=== PATIENT | male | born 1995 | race Caucasian/White ===

== ENCOUNTER 2016-09-13 08:50 | Emergency (ER) | payer OTHER ==
--- NOTE | 2016-09-13 09:22 | ED Physician Documentation ---
History of Present Illness - Stated complaint Stated Complaint: LT KNEE PX - Chief complaint Chief Complaint: Ext Problem - Additonal information Additional information: hx from pt 20 male playing soccer twisted on pknated foot felt pop and crack in his L knee immed swelling pain with ROM can walk Review of Systems Musculoskeletal: reports: Joint pain, Joint swelling, Pain with weight bearing PD PAST MEDICAL HISTORY - Past Medical History Neuro: Head injury - Past Surgical History Past Surgical History: No - Allergies Allergies/Adverse Reactions: Allergies Allergy/AdvReac Type Severity Reaction Status Date / Time No Known Drug Allergies Allergy Verified 09/13/16 08:59 - Social History Does the pt smoke?: Yes Smoking Status: Current some day smoker Does the pt drink ETOH?: No Does the pt have substance abuse?: No - Immunizations Immunizations are current?: Yes PD ED PE NORMAL - Vitals Vital signs reviewed: Yes - Extremities Extremities: Other (L knee: + effusion, no appeciable ACL laxity (pt guarding 2/ 2 pain though), no MSL LCL laxity, some discomfor and resistance but no pop with meniscla testing, full ext, somehwhat limited flexion, MSV intact) Results - Vitals Vitals: Vital Signs - 24 hr 09/13/16 08:58 Temperature 36.7 C Heart Rate 97 Respiratory 18 Rate Blood Pressure 138/92 H O2 Saturation 97 Oxygen O2 Source Room air - Rads (name of study) knee Radiology: See rad report (moderate effusion in the suprapatellar bursa, no bony abn) PD MEDICAL DECISION MAKING - ED course ED course: exam most c/w meniscal injury Departure - Departure Disposition: 01 Home, Self Care Clinical Impression: Knee internal derangement Qualifiers: Laterality: left Qualified Code(s): M23.92 - Unspecified internal derangement of left knee Condition: Good Instructions: ED Meniscal Injury Knee Poss Follow-Up: [facility] [Provider Group] Comments: The xray is fine. Based on your exam I suspect a meniscal injury Please follow up with orthopedics - you need to call to schedule ELO elevate and ice to decrease the swelling Motrin and tylenol as needed for the pain Please follow up with your PMD about your blood pressure - it was high today Forms: Activity restrictions
--- NOTE | 2016-09-13 10:41 | XRAY Preliminary Report ---
Exam: XR Knee 4 View LT IMPRESSION: Moderate effusion in the suprapatellar bursa. No additional bone or joint abnormality not ed. [facility] SITE ID: [id number]
--- NOTE | 2016-09-13 10:43 | XRAY Report ---
EXAM: LEFT KNEE RADIOGRAPHY, 4 VIEWS EXAM DATE: 09/13/2016 10:00 AM. CLINICAL HISTORY: 21-year-old male twisted left knee while playing soccer last night. COMPARISON: None. TECHNIQUE: Frontal, crosstable lateral and both oblique views. FINDINGS: Bones: Normal. No fractures or bone lesions. Joints: Joint space is well-maintained. No subluxation. Moderate effusion in the suprapatellar bursa. Soft Tissues: Normal. No soft tissue swelling. IMPRESSION: Moderate effusion in the suprapatellar bursa. No additional bone or joint abnormality not ed. [facility] Referring Provider Line: [phone] SITE ID: [id number]
[2016-09-13 11:02] VITALS: BP 114/77
== END 2016-09-13 11:28 | disposition home or self-care (01) ==
LOC: ED 08:50
DX: M23.8X2 Other internal derangements of left knee (principal); X50.9XXA Other and unspecified overexertion or strenuous movements or postures, initial encounter; Y93.66 Activity, soccer; Y92.322 Soccer field as the place of occurrence of the external cause
CPT/HCPCS: 99282; 99283

== ENCOUNTER 2016-10-09 10:46 | Outpatient (CLI) | payer OTHER ==
--- NOTE | 2016-10-09 15:37 | MRI Report ---
EXAM: LEFT KNEE MRI WITHOUT CONTRAST EXAM DATE: 10/09/2016 11:44 AM. CLINICAL HISTORY: Left knee soccer injury late August. Twisting injury. COMPARISON: Radiographs 09/13/2016. TECHNIQUE: Multiplanar, multisequence T1-weighted and fluid-sensitive sequences of the knee without c ontrast. Other: None. FINDINGS: There is a small joint effusion. Cruciate ligaments: The posterior cruciate ligament appears intact. The anterior cruciate ligament ap pears completely torn. Medial meniscus: Intact. No tear is identified. Lateral meniscus: Complex partial-thickness oblique radial tear at the inner half of the posterior ho rn. Small flap fragment at the root of the posterior horn. Collateral ligaments: Trace fluid within the MCL bursa. Medial and fibular collateral ligaments other hobbs appear intact. Bones and articular surfaces: Prominent patchy foci of marrow edema throughout the posterior aspect o f the medial and lateral tibial plateau as well as the periphery of the mid medial femoral condyle. M ore pronounced marrow edema at the mid lateral femoral condyle. Some linear hypointense T1 signal bandar p to the subchondral bone plate at the lateral tibial plateau consistent with small focus of nondispl aced incomplete fracture. Overlying articular cartilage appears intact. Prominent marrow edema and so me linear signal abnormalities within the fibular head consistent with nondisplaced fracture. Extensor mechanism: The patellar tendon and quadriceps insertion appear intact. IMPRESSION: 1. Tear of the anterior cruciate ligament with corresponding bone contusions. 2. Complex partial-thickness oblique radial tear at the inner half of the posterior horn lateral meni scus with a flap fragment. 3. Nondisplaced fracture of the fibular head. 4. Incomplete nondisplaced subchondral fracture at the weightbearing lateral femoral condyle. [facility] MUSCULOSKELETAL RADIOLOGY SECTION Referring Provider Line: [phone] SITE ID: [id number]
== END 2016-10-09 10:47 | disposition home or self-care (01) ==
LOC: DI 10:46
PROVIDERS: ATTEND Orthopaedic Surgery
DX: S83.512A Sprain of anterior cruciate ligament of left knee, initial encounter (principal); S83.282A Other tear of lateral meniscus, current injury, left knee, initial encounter; S82.402A Unspecified fracture of shaft of left fibula, initial encounter for closed fracture; S72.425A Nondisplaced fracture of lateral condyle of left femur, initial encounter for closed fracture

== ENCOUNTER 2017-01-18 06:15 | Day surgery (SDC) | payer OTHER ==
[2017-01-18] MEDS ORDERED: LACTATED RINGERS 1,000 ML IV ONE ×3 (06:35→15:30)
[2017-01-18] MEDS ORDERED: ceFAZolin 2 GM/50 ML 2 GM/50 ML BAG IV ONE (06:38)
[2017-01-18] MEDS ORDERED: ACETAMINOPHEN 1,000 MG/100 ML 100 ML IV ONE (06:38)
[2017-01-18] MEDS ORDERED: BACITRACIN 50,000 UNIT VIAL ONE (08:21)
[2017-01-18] MEDS ORDERED: ceFAZolin 1 GM VIAL IV ONE (08:30)
[2017-01-18] MEDS ORDERED: MIDAZOLAM 2 MG/2 ML VIAL IVP ONE (08:30)
[2017-01-18] MEDS ORDERED: HYDROmorphone 1 MG/ML CARPUJECT IVP ONE (08:30)
[2017-01-18] MEDS ORDERED: PROPOFOL 200 MG/20 ML VIAL IVP ONE (08:30)
[2017-01-18] MEDS ORDERED: LIDOCAINE-MPF 2% 5 ML VIAL IM ONE (08:30)
[2017-01-18] MEDS ORDERED: fentaNYL 100 MCG/2 ML VIAL IVP ONE (08:30)
[2017-01-18] MEDS ORDERED: DEXAMETHASONE 4 MG/ML VIAL IVP ONE (08:30)
[2017-01-18] MEDS ORDERED: ONDANSETRON 4 MG/2 ML VIAL IVP ONE (08:30)
[2017-01-18] MEDS ORDERED: METOPROLOL 5 MG/5 ML VIAL IVP ONE (08:30)
[2017-01-18] MEDS ORDERED: BUPIVACAINE 0.25% PF 30 ML VIAL SUBQ ONE ×2 (08:33→13:57)
[2017-01-18] MEDS: fentaNYL 100 MCG/2 ML VIAL ONE ×3 (14:44→15:14)
[2017-01-18] MEDS ORDERED: oxyCODONE 5 MG TABLET ONE (15:30)
[2017-01-18 16:54] VITALS: BP 130/78
--- NOTE | 2017-01-19 13:16 | OPERATIVE REPORT ---
DATE OF SURGERY: 01/18/2017 00:00:00 PREOPERATIVE DIAGNOSIS: 1. Left anterior cruciate ligament rupture. 2. Left lateral meniscus root tear. POSTOPERATIVE DIAGNOSIS: 1. Left anterior cruciate ligament rupture. 2. Left lateral meniscus tear. NAME OF PROCEDURE: 1. Left anterior cruciate ligament reconstruction, CPT 69350. 2. Left lateral meniscus root repair, CPT 28369. 3. Left knee examination under anesthesia, CPT 43277. SURGEON: Leno Jefferson MD MANAGER QUALITY COMPLIANCE: Aileen Pratt MD ANESTHESIA: General. POSTOPERATIVE PLAN: Nonweightbearing for 6 weeks. Knee locked in full extension for 2 weeks. Range of motion 0-90 from weeks 2 to 6. He will then advance his weightbearing, strengthening, and range of motion at the 6-week point. INDICATION FOR SURGERY: This is a 21-year-old male who sustained the above injuries in a noncontact twisting mechanism while playing soccer with his command on October 07. He participated in physical therapy to maximize his range of motion and nonoperative management. He had instability with daily activities and pain laterally within his joint. He had not attempted any cutting sports as he did not trust his knee. He was indicated for operative management secondary to his desire to return to pivoting sports, his concurrent ACL tear and root tears, as well as his instability during normal daily activities. Risks, benefits and alternatives of the surgery were discussed. Risks included pain, bleeding, infection, damage to nearby structures, need for further surgery, implant complications, DVT, PE, stroke, heart attack, lung problems, and . Risks specific to this surgery include anterior knee pain secondary to his graft choice of bone-patellar tendon-bone autograft. He was offered a hamstring autograft as well, but he opted for the patellar tendon because he liked the idea of rapid [id number] healing, and he had read that high level athletes get that graft typically. EXAMINATION UNDER ANESTHESIA: Findings: Range of motion 0 to 140. Stable to varus and valgus stressing at 0 and 30 degrees. A 2B Alka, pivot shift, positive, negative posterior drawer, negative posterior sag. Negative dial at 30 , negative dial at 90. DIAGNOSTIC ARTHROSCOPY 1. Patellofemoral joint showed the patella to be okay. The trochlea had mild grade 1 softening. 2. Medial and lateral gutters were without free body. 3. Medial karen-joint showed the meniscus to be intact, tibial plateau intact, and femoral condyle intact. 4. Notch showed a complete tear of the ACL, PCL intact. There was a diffuse synovitis throughout the notch and the joint. 5. Lateral karen-joint showed a near-complete parrot beak tear of the posterior horn of the lateral meniscus with a few fibers remaining of the meniscal femoral ligaments. In addition, the area of the root had horizontal tears and it was generally degenerative. The lateral femoral condyle was intact. Lateral tibial plateau was intact. The lateral root injury was debrided to healthy tissue and stabilized with sutures through a bone tunnel. IMPLANTS 1. Femur was fixed with #5 FiberWire tied over a button. 2. Graft used was a bone-patellar tendon-bone autograft sized to 9.5 x 25 mm in the femur, and 10 x 35 mm in the tibia. Tibia was fixed with a 9 x 20 mm titanium screw by Arthrex. 3. The lateral root was fixed with two 2-0 sutures down through a bone tunnel and fixed with a SwiveLock. ANTIBIOTICS: Weight-based Ancef. Antibiotics were re-dosed after 3 hours of surgery. ESTIMATED BLOOD LOSS: 100 mL. URINE OUTPUT: Not recorded. INTRAVENOUS FLUIDS: 2 liters. TOURNIQUET TIME: 127 minutes at 250 mmHg. SPECIMENS: None. COMPLICATIONS: None. DISPOSITION: Stable to PACU. DEEP VENOUS THROMBOSIS PROPHYLAXIS: Early frequent ambulation. SCD while in the hospital. JARVIS hose for 2 weeks. Aspirin 325 mg for 4 weeks. PROCEDURE IN DETAIL: The patient was met in the preoperative hold area the day of the procedure. Operative extremity was signed. Consent was verified. He desired to proceed. He was brought to the operating room and surrendered to Anesthesia. Once general anesthesia had been obtained he was placed in the supine position. All bony prominences were well padded. Examination under anesthesia was performed. He was then prepped and draped in the standard sterile fashion. A surgical time-out was held where we confirmed the patient's identity, procedure, laterality, allergies, images. All were in agreement and we proceeded. Standard diagnostic arthroscopy was performed using anterolateral and anteromedial portal sites. The anteromedial portal was created under direct visualization. The findings of the diagnostic arthroscopy can be found above. The sucker shaver was used to debride some of the synovitis, and an ArthroCare radiofrequency ablation wand was used to control bleeding. The remnant ACL tissue was debrided. The lateral root injury was debrided with a straight biter and a sucker shaver until stable borders were obtained. The tear was approximately 1 cm from the anatomic root and we had concerns that repairing it to the anatomical location would tension it too much. We therefore decided to perform a root repair but to fix it more in place at the border of the articular cartilage just on the edge of the notch. After all of this prep had been performed we then stopped the arthroscopic portion and turned our attention to graft obtainment. An Esmarch was used and the tourniquet was elevated to 250 mmHg. A 10 cm incision was made from the mid point of the patella down to the tibial tubercle from just medial to midline. Sharp dissection was brought down to the peritenon and all tissue was freed from it. Electrocautery was used to obtain hemostasis. The peritenon was entered and the patellar tendon was dissected off of it. The medial and lateral borders of the tendon were identified and this measured 35 mm. We therefore took the central 11 and, using a new sharp knife, made a full- thickness cut down through the tendon in line with the fibers. We then scored an 11 x 25 mm bone block off the patella, and an 11 x 35 mm bone block off the tibia. A 2.0 drill was used at the corners to establish them. A sagittal saw was brought in and a triangular graft was taken from the patella, and a trapezoidal graft was taken from the tibia. A curved osteotome was used at the proximal end of the bone block to free it, as well as at the distal end. All soft tissue attachments were removed and the graft was brought to the back table. I personally prepped the graft and bullettized the patellar side to fit 9.5 x 25 mm long. This passed easily through a 10. I placed a single drill hole from medial to lateral and placed a single suture. This side was to be used for the femur. For the tibia I bullettized and sized it down to a 10 x 35 and 2 drill holes were placed 90 degrees to each other in the tibia. This was then placed in a Ray-Pablo and kept on the back table until we were ready. We then turned our attention back to the arthroscopic meniscal root repair. Utilizing a Knee Scorpion 2 sutures were passed through the root tissue. The first was 4 mm off the edge and the next was 7 mm from the edge. We found these to fix the tissue quite nicely. The more lateral suture was placed in a luggage- tag-type stitch. The more central one was a guiding suture. We then utilized the Arthrex meniscal root repair guide and brought a 6 mm FlipCutter into the joint. We then passed the wire and passed the sutures down through this hole. When we tensioned the sutures we found that the hole was too anterior and it caused the meniscus to be repaired non-anatomically. We could not accept this and we, therefore, pulled the sutures out of that tunnel. We drilled a new tunnel more posteriorly. This did leave a small cartilage defect within the notch on the lateral tibia. After placing a new tunnel for the root repair we then flipped the FlipCutter and drilled back 5 mm into bone. Sucker shaver was used to debride any overlying cartilage that was loose and to allow for a better repair. We then placed a PassPort suture passer and brought the stitches down through the tunnels utilizing the wire passer. We pulled on the sutures and showed a near-anatomic reduction with better position. We took a picture of this. We did not fix it at this time as we planned to manipulate the limb during the ACL and we would not want to disrupt this repair. We, therefore, held this final fixation until the end of the case. We then proceeded with continuing the ACL, and a femoral guide was placed through the lateral portal with the camera on the medial portal. We confirmed that we had cleared all remnant tissue and the back wall was clearly visible. The femoral guide was placed. A skin incision was made laterally over the femur sized 3 cm, and a similar size split was made in the IT band. The bullet was brought down to bone and the size 10 FlipCutter was brought down into the joint. We found that the pin had been placed too anteriorly. We, therefore, removed it, replaced the guide and redirected the tendon to the [id number] position. The guide was removed, FlipCutter was flipped, and the lateral wall was scored. We found there to be a 2 mm back wall and took a picture of this. The position was at 2 o'clock on a clock face. Satisfied with this position, we then drilled a 29 mm femoral tunnel. The femur sized to 40 on our first measurement. FiberStick was brought in and any free floating bone fragments were removed with the sucker shaver. The suture was brought out of the lateral portal and snapped to itself on the lateral femur. We then turned our attention to the tibia and, using the tibial guide, placed it hugging the PCL approximately 7 mm anterior to it and in line with the posterior border of the anterior horn of the lateral meniscus. This was on the slope of the medial eminence. On the tibia side we had to extend the incision slightly to allow for drilling of the tibial tunnel. The ACL tunnel had to be further medial and further proximal than the meniscal root tunnel to avoid the tunnels overlapping. The guidewire was brought into the joint and the knee was fully extended. This showed that no impingement would occur. Satisfied with its position, a Rosalba was placed onto it and a 10 mm tunnel was drilled. All soft tissue was removed from the intraarticular and extraarticular portions of the tunnel to allow for free passage of the graft. We then pulled our passing sutures down through the tunnel and completed any debridement that was necessary. The graft was then brought from the back table and the sutures were passed up through the tibia the femur and out the lateral wall. The graft was then brought into the joint and the bone block was found to get stuck between the tibia and the femur. Using a tissue grasper, the bone block was delivered into the joint and pressed posterior against the PCL. This made it in line with the femoral tunnel and it passed easily into the femur. The markings placed on the bone block disappeared and, by palpation with a probe, you could tell that no bone was left into the joint. A low accessory medial portal was located with a spinal needle and a good trajectory for screw placement was found. We then made another small portal and brought the nitinol wire into the joint. The nitinol wire, we attempted to place it between the bone block and the tunnel but would not enter into the tunnel and, after many minutes of trying to get that to happen, I decided that the angles must have been wrong and that we were unable to do that. We then went to plan B, which was to be a TightRope fixation. This necessitated removal of the graft from the joint and placement of the TightRope device. We, however, could not remove it from the femur, found that the bone block in the femur had lodged within its tunnel and was well fixed. We were unable to pull it out with intraarticular and extraarticular forces. After many minutes of trying this we decided that an alternative fixation should be done. We therefore made a larger incision over the lateral femur and tied the sutures under direct visualization over a button that was applied to the lateral wall. Ten knots were tied in this; 10 reverse half hitches, alternating posts. Satisfied with our femoral fixation, we then brought the leg onto the table, placed a large bump under the femur and placed a posterior drawer, held tension on the tibia. We found that there was approximately 1.5 cm of graft tunnel mismatch. I therefore, using 2 Kochers, rotated the bone block 360 degrees which shortened the graft, leaving us with only 8 mm of mismatch. Satisfied with that and with the knowledge that approximately 28 mm of bone block was left in the tibial tunnel, we sized our screw to 9 x 20 mm, and this was buried into the bone. The scope was brought into the joint and we confirmed that the screw was not protruding into the joint, and we took final images, satisfied with our fixation and graft position. Then excess bone was cut off of the tibia side and the sutures were removed. We then tensioned the root repair and placed a SwiveLock 1 cm distal to the location of the tunnel. Full tension was placed on this, similar to what was seen during the provisional stages of the case. We were, however, unable to visualize this repair as it was behind the ACL graft. But with full tension SwiveLocks were placed and this was found to hold quite nicely. Excellent tension on the meniscus could be seen but the location of the repair could not. The wounds were all copiously irrigated. The autograft from the grafting procedure was placed into the patella and tibial defects. Cancellous chips were also added. I then closed the peritenon and overlying tissues with 0 Vicryl, 2- 0 Vicryl was used to the dermis, and a running Monocryl was used in the skin. The IT band was closed with 0 Vicryl interrupted. The lateral incision was closed with 2-0 nylon and a running Monocryl. All portals were closed with nylon in a portal stitch. Marcaine 0.25%, 30 mL, was placed about the knee. Sterile dressings were applied. A towel was placed and the bladder for the ice machine was placed. A range of motion brace locked in full extension was then applied. The tourniquet had been let down before drilling of the ACL tunnels. JOB #: [id number] EXT JOB #:[id number] MTDAnt
== END 2017-01-18 06:16 | disposition home or self-care (01) ==
LOC: SDS 06:15
PROVIDERS: ATTEND Orthopaedic Surgery
PROC: 0SQD4ZZ Repair Left Knee Joint, Percutaneous Endoscopic Approach (ICD-10-PCS; 2017-01-18)
PROC: 0MRP47Z Replacement of Left Knee Bursa and Ligament with Autologous Tissue Substitute, Percutaneous Endoscopic Approach (ICD-10-PCS; principal; 2017-01-18 07:30)
DX: S83.512A Sprain of anterior cruciate ligament of left knee, initial encounter (principal); S83.282A Other tear of lateral meniscus, current injury, left knee, initial encounter
CPT/HCPCS: 29882; 29888; A9270; C1713; J0131; J0690; J1170; J7120

== ENCOUNTER 2017-10-12 23:17 | Outpatient (CLI) | payer OTHER | END 2017-10-12 23:59 | disposition critical access hospital (66) | LOC: EMS 23:17 | PROVIDERS: ATTEND Surgery | DX: S00.81XA Abrasion of other part of head, initial encounter (principal); M54.2 Cervicalgia; M25.512 Pain in left shoulder; V89.2XXA Person injured in unspecified motor-vehicle accident, traffic, initial encounter; Y92.413 State road as the place of occurrence of the external cause | CPT/HCPCS: A0425; A0427 ==

== ENCOUNTER 2017-10-12 23:58 | Emergency (ER) | payer OTHER ==
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
[2017-10-13] MEDS ORDERED: IOPAMIDOL-300 100 ML VIAL ONE (00:27)
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
[2017-10-13] MEDS ORDERED: IOPAMIDOL-300 100 ML VIAL IVP ONE (00:49)
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
[2017-10-13 02:07] VITALS: BP 120/90
== END 2017-10-13 02:07 | disposition home or self-care (01) ==
LOC: EDUNIT# → ED 23:58
DX: S09.90XA Unspecified injury of head, initial encounter (principal); S60.512A Abrasion of left hand, initial encounter; S60.511A Abrasion of right hand, initial encounter; S90.01XA Contusion of right ankle, initial encounter; V49.9XXA Car occupant (driver) (passenger) injured in unspecified traffic accident, initial encounter; Y92.410 Unspecified street and highway as the place of occurrence of the external cause; F17.200 Nicotine dependence, unspecified, uncomplicated
CPT/HCPCS: 36415; 70450; 71045; 71260; 72125; 74177; 99284; Q9967

== ENCOUNTER 2018-12-19 20:26 | Emergency (ER) | payer OTHER ==
[2018-12-19 20:38] VITALS: BP 142/78
== END 2018-12-19 21:23 | disposition left against medical advice (07) ==
LOC: ED 20:26
DX: Z53.21 Procedure and treatment not carried out due to patient leaving prior to being seen by health care provider (principal)

== ENCOUNTER 2018-12-20 10:06 | Emergency (ER) | payer OTHER ==
[2018-12-20 10:14] VITALS: BP 147/65
[2018-12-20] MEDS ORDERED: HYDROcod/ACETAM 5/325 MG TABLET PO STA (11:04)
[2018-12-20] MEDS ORDERED: CYCLOBENZAPRINE 10 MG TABLET PO STA (11:04)
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
== END 2018-12-20 12:48 | disposition home or self-care (01) ==
LOC: ED 10:06
DX: S09.90XA Unspecified injury of head, initial encounter (principal); S46.911A Strain of unspecified muscle, fascia and tendon at shoulder and upper arm level, right arm, initial encounter; S39.012A Strain of muscle, fascia and tendon of lower back, initial encounter; V53.5XXA Driver of pick-up truck or van injured in collision with car, pick-up truck or van in traffic accident, initial encounter; W22.11XA Striking against or struck by driver side automobile airbag, initial encounter
CPT/HCPCS: 70450; 99284

== ENCOUNTER 2018-12-22 12:51 | Outpatient (CLI) | payer OTHER ==
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
== END 2018-12-22 12:52 | disposition home or self-care (01) ==
LOC: SC 12:51
PROVIDERS: ATTEND Internal Medicine Pulmonary Disease
DX: R06.83 Snoring (principal); R06.81 Apnea, not elsewhere classified; G47.8 Other sleep disorders; R41.89 Other symptoms and signs involving cognitive functions and awareness; G47.10 Hypersomnia, unspecified
CPT/HCPCS: 99203; 99212

== ENCOUNTER 2019-01-01 20:23 | Outpatient (CLI) | payer OTHER | END 2019-01-01 20:24 | disposition home or self-care (01) | LOC: SC 20:23 | PROVIDERS: ATTEND Internal Medicine Pulmonary Disease | DX: R06.83 Snoring (principal) | CPT/HCPCS: 95810 ==

== ENCOUNTER 2019-01-26 15:09 | Outpatient (CLI) | payer OTHER ==
[2019-01-26 16:08] VITALS: BP 104/70
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
== END 2019-01-26 15:10 | disposition home or self-care (01) ==
LOC: SC 15:09
PROVIDERS: ATTEND Nurse Practitioner Family
DX: R06.83 Snoring (principal)
CPT/HCPCS: 99212; 99214

== ENCOUNTER 2019-02-20 08:49 | Outpatient (CLI) | payer OTHER ==
--- NOTE | 2019-02-20 13:14 | Ultrasound Report ---
Reason: LOW BACK PAIN, FLANK PAIN Procedure Date: 02/20/2019 Accession Number: [id number] / [id number] Procedure: US - Retroperitoneal CPT Code: Final Report FULL RESULT: EXAM: RENAL ULTRASOUND EXAM DATE: 02/20/2019 09:27 AM. CLINICAL HISTORY: LOW BACK PAIN, FLANK PAIN. COMPARISON: None. TECHNIQUE: Real-time scanning was performed with static images obtained. FINDINGS: Right Kidney: 10.7 cm. Normal echotexture with no stones, contour-deforming masses, or hydronephrosis. Left Kidney: 10.4 cm. Normal echotexture with no stones, contour-deforming masses, or hydronephrosis. Bladder: Bilateral jets seen. The prevoid bladder volume was 158 cc. The postvoid bladder volume was 10 cc. Other: None. IMPRESSION: 1. No hydronephrosis or renal calculus. 2. No abnormal post bladder void residual. RAD[facility]
--- NOTE | 2019-02-20 14:10 | XRAY Report ---
Reason: LOW BACK PAIN, FLANK PAIN Procedure Date: 02/20/2019 Accession Number: [id number] / [id number] Procedure: XR - Lumbar Spine 2 View CPT Code: Final Report FULL RESULT: EXAM: LUMBOSACRAL SPINE RADIOGRAPHY EXAM DATE: 02/20/2019 09:41 AM. CLINICAL HISTORY: Lower back pain and flank pain. COMPARISONS: RETROPERITONEAL 02/20/2019 8:50 AM. TECHNIQUE: 2 views. FINDINGS: Alignment: Normal. No spondylolisthesis or scoliosis. Bones: Five [id number] lumbar vertebral bodies are present. No fractures or bone lesions. Disks: Normal. Disk heights are maintained. Facets: There is suggestion of a pars defect at the left L5-S1 level with associated degenerative changes. Sacroiliac Joints: Unremarkable. Soft Tissues: Frontal view demonstrates a 3.5 mm calcification projecting over the mid to upper pole region of the right kidney and a 4 mm calcification projecting over the mid to upper pole region of the left kidney. IMPRESSION: Question L5 pars defect. Question nephrolithiasis. Note is made of preserved ureteral jets and absence of overt hydronephrosis on the ultrasound examination performed today. [facility]
== END 2019-02-20 08:50 | disposition home or self-care (01) ==
LOC: DI 08:49
PROVIDERS: ATTEND Internal Medicine
DX: M54.5 Low back pain (principal); R10.9 Unspecified abdominal pain
CPT/HCPCS: 72100; 76770

== ENCOUNTER 2019-10-13 09:37 | Outpatient (CLI) | payer OTHER | END 2019-10-13 09:38 | disposition home or self-care (01) | LOC: LAB 09:37 | PROVIDERS: ATTEND Internal Medicine | DX: R05 Cough (principal); Z20.828 Contact with and (suspected) exposure to other viral communicable diseases | CPT/HCPCS: 81599 ==

== ENCOUNTER 2019-10-27 10:45 | Outpatient (CLI) | payer OTHER | END 2019-10-27 23:59 | disposition home or self-care (01) | LOC: COV 10:45 | PROVIDERS: ATTEND Family Medicine | DX: R05 Cough (principal); R06.02 Shortness of breath; R53.83 Other fatigue; J34.89 Other specified disorders of nose and nasal sinuses; Z20.828 Contact with and (suspected) exposure to other viral communicable diseases ==

== ENCOUNTER 2022-10-17 09:36 | Emergency (ER) | payer OTHER ==
[2022-10-17 10:17] LABS: BASOPHILS # (AUTO) 0.1 10^3/uL (0.0-0.1); BASOPHILS % (AUTO) 0.8 %; EOSINOPHILS # (AUTO) 0.2 10^3/uL (0.0-0.7); EOSINOPHILS % (AUTO) 2.2 %; HCT - HEMATOCRIT 47.4 % (42.0-52.0); HGB - HEMOGLOBIN 15.5 g/dL (14.0-18.0); LYMPHOCYTES # (AUTO) 2.3 10^3/uL (1.5-3.5); LYMPHOCYTES % (AUTO) 27.8 %; MEAN CORPUSCULAR HEMOGLOBIN 28.8 pg (27.0-31.0); MEAN CORPUSCULAR HGB CONC 32.7 g/dL (32.0-36.0); MEAN CORPUSCULAR VOLUME 88.1 fL (80.0-94.0); MEAN PLATELET VOLUME 10.4 fL (7.4-11.4); MONOCYTES # (AUTO) 0.5 10^3/uL (0.0-1.0); MONOCYTES % (AUTO) 6.5 %; NEUTROPHILS # (AUTO) 5.2 10^3/uL (1.5-6.6); NEUTROPHILS % (AUTO) 62.5 %; PLT - PLATELET COUNT 209 10^3/uL (130-450); RED BLOOD COUNT 5.38 10^6/uL (4.70-6.10); WHITE BLOOD COUNT 8.3 x10^3/uL (4.8-10.8)
[2022-10-17 10:18] VITALS: BP 128/76
[2022-10-17 10:26] LABS: ALBUMIN/GLOBULIN RATIO 1.4 (1.0-2.2); BILIRUBIN,TOTAL 0.7 mg/dL (0.2-1.0); CALCIUM 8.9 mg/dL (8.5-10.3); CREATININE 1.2 mg/dL (0.6-1.2); POTASSIUM 4.1 mmol/L (3.5-5.0); TOTAL PROTEIN 6.8 g/dL (6.7-8.2)
--- NOTE | 2022-10-17 10:29 | XRAY Report ---
PROCEDURE: Chest 1 View X-Ray INDICATIONS: Chest Pain TECHNIQUE: One view of the chest was acquired. COMPARISON: None. FINDINGS: Surgical changes and devices: None. Lungs and pleura: No pleural effusions or pneumothorax. Lungs are clear. Mediastinum: Mediastinal contours appear normal. Heart size is normal. Bones and chest wall: No suspicious bony lesions. Overlying soft tissues appear unremarkable. IMPRESSION: No acute cardiopulmonary process. Reviewed by: Darshan Kessler on 10/17/2022 10:27 AM PDT Approved by: Darshan Kessler on 10/17/2022 10:27 AM PDT Station ID: [id number]
--- NOTE | 2022-10-17 10:44 | ED Physician Documentation ---
History of Present Illness - Stated complaint Stated Complaint: CHEST PX, SOA - Chief complaint Chief Complaint: Cardiac - Additonal information Additional information: Patient is a 27-year-old male presenting to the emergency department with chest pain. Reports chest pain ongoing x1 month, worse for the last week. Reports that he becomes very anxious associate with the chest pain. Describes it as a continuous pressure sensation on the left side of his chest. Does report a history of coronary artery disease in his family stating that his father had first heart attack at age 59. He denies any history of hypertension, dyslipidemia, diabetes. He is a smoker/vapor. He denies any history of travel, periods of immobility, illicit substances, supplements or other medications. Review of Systems Constitutional: denies: Fever Eyes: denies: Loss of vision Ears: denies: Loss of hearing Nose: denies: Rhinorrhea / runny nose Cardiac: reports: Chest pain / pressure Respiratory: denies: Dyspnea GI: denies: Abdominal Pain : denies: Dysuria Skin: denies: Rash PD PAST MEDICAL HISTORY - Past Medical History Cardiovascular: None Respiratory: None Neuro: Migraines Endocrine/Autoimmune: None GI: None : None Psych: None Musculoskeletal: Other Derm: None - Past Surgical History Past Surgical History: No Ortho: Arthroscopic surgery, Other - Present Medications Home Medications: Ambulatory Orders Medication Instructions Recorded Confirmed Indomethacin [Indocin] 25 mg PO BIDWM #30 cap 10/17/22 Pantoprazole Sodium [Protonix] 20 mg PO DAILY #30 tab 10/17/22 - Allergies Allergies/Adverse Reactions: Allergies Allergy/AdvReac Type Severity Reaction Status Date / Time No Known Drug Allergies Allergy Verified 10/17/22 09:46 - Social History Does the pt smoke?: No Smoking Status: Former smoker Does the pt drink ETOH?: No Does the pt have substance abuse?: No - Immunizations Immunizations are current?: Yes - POLST Patient has POLST: No PD ED PE NORMAL - General General: Alert and oriented X 3, No acute distress, Well developed/nourished, Other - HEENT HEENT: Atraumatic - Neck Neck: Supple, no meningeal sign - Cardiac Cardiac: RRR - Respiratory Respiratory: No respiratory distress, Clear bilaterally - Abdomen Abdomen: Normal bowel sounds, Non tender - Male Male : Deferred - Rectal Rectal: Deferred - Back Back: No CVA TTP - Derm Derm: Normal color - Extremities Extremities: No deformity - Neuro Neuro: Alert and oriented X 3, 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 Relevant findings are: Sinus rhythm with rate 74 bpm. Normal axis. Normal NH, QRS, QTc intervals. No ST segment elevations or T wave inversions. - Labs Labs: Laboratory Tests 10/17/22 10/17/22 10/17/22 10:05 10:05 10:05 WBC 8.3 RBC 5.38 Hgb 15.5 Hct 47.4 MCV 88.1 MCH 28.8 MCHC 32.7 RDW 13.0 Plt Count 209 MPV 10.4 Neut # (Auto) 5.2 Lymph # (Auto) 2.3 [place] # (Auto) 0.5 Eos # (Auto) 0.2 Baso # (Auto) 0.1 Absolute Nucleated RBC 0.00 Nucleated RBC % 0.0 Sodium 140 Potassium 4.1 Chloride 105 Carbon Dioxide 30 Anion Gap 5.0 L BUN 22 H Creatinine 1.2 Estimated GFR (MDRD) 72 L Glucose 110 H Calcium 8.9 Total Bilirubin 0.7 AST 20 ALT 24 Alkaline Phosphatase 43 Troponin I High Sens < 2.3 L Total Protein 6.8 Albumin 4.0 Globulin 2.8 Albumin/Globulin Ratio 1.4 Lipase 39 PD Medical Decision Making - ED course Complexity details: reviewed results, re-evaluated patient, d/w patient ED course: Patient 27-year-old male presenting to the emergency department with 1 month history of chest pain. Afebrile, hematin stable on arrival to the emergency department. EKG is outlined above negative for indications of acute cardiac ischemia or dysrhythmia. Maintained on telemetry with no significant changes reported by nursing staff. Noted to be sinus rhythm on telemetry on my evaluation at 10:43 AM. Labs, chest x-ray and high-sensitivity troponin negative. Overall he is low risk heart score, low risk Wells for DVT/PE and PERC negative here in the emergency department. Ongoing etiologies for his pain include anxiety, costochondritis, pleurisy, gastric reflux. Pericarditis is considered however this is seem to be less likely. Nevertheless will initiate course nonsteroidal anti-inflammatory medications and Protonix and refer back to primary care for reevaluation.He does have history of vaping but is overall low risk on heart scoring. Departure - Departure Disposition: 01 Home, Self Care Clinical Impression: Chest pain Qualifiers: Chest pain type: other chest pain Qualified Code(s): R07.89 - Other chest pain; R07.8 - Other chest pain Instructions: ED Chest Pain Noncardiac Ch, ED Chest Pain Costochondritis Prescriptions: Indomethacin [Indocin] 25 mg PO BIDWM #30 cap Pantoprazole Sodium [Protonix] 20 mg PO DAILY #30 tab Comments: Thank you for allowing us to care for you today would be general. Today in the emergency department your evaluated for any possible life- threatening medical emergency. All the testing performed in the emergency department today including your EKG, blood work and chest x-ray were all very reassuring. I do not identify any d angerous or life-threatening cause for your symptoms. However as we discussed there are many reasons why an individual can have persistent left-sided chest pain. I would like you to follow-up carefully with your primary care doctor as they will likely have additional tests and treatments for you however in the meantime would like to start 2 medications, 1 is an antiacid medication to be taken each morning first thing on an empty stomach. Please wait at least 60 to 90 minutes after taking this medication before eating or drinking anything. Additionally would like to start you on a strong nonsteroidal anti-inflammatory medication known as indomethacin. In the meantime I do recommend working towards cessation of use of tobacco based products as these can have a significant negative impact on your overall health and wellbeing. If it anytime you develop any new or worsening symptoms please not hesitate to return.
== END 2022-10-17 10:57 | disposition home or self-care (01) ==
LOC: ED 09:36
DX: R07.89 Other chest pain (principal); F17.290 Nicotine dependence, other tobacco product, uncomplicated
CPT/HCPCS: 36415; 80053; 83690; 84484; 85025; 93005; 99284